=== PATIENT | male | born 1945 | race Caucasian/White ===

== ENCOUNTER 2019-08-20 15:06 | Emergency (ER) | payer BC, MEDICARE ==
[2019-08-20] MEDS ORDERED: Bacitracin Oint 1 GM U/D Packet TOP ONE (15:31)
--- NOTE | 2019-08-20 16:04 | EDM.PDOC ---
ED HPI GENERAL MEDICAL PROBLEM - General Chief Complaint: Laceration Stated Complaint: R LEG INJURY Time Seen by Provider: 08/20/19 15:30 Source of Information: Reports: Patient History Limitations: Reports: No Limitations - History of Present Illness INITIAL COMMENTS - FREE TEXT/NARRATIVE: 74-year-old male with a right leg laceration. Unfortunately this occurred just over 20 hours ago, he has a flap laceration to the anterior aspect of the right lower leg. It is just distal to the knee. He washed it real good, tried to tape it but today it looked like it was gaping and he thought he should have it checked out. Duration: Hour(s): (20 to 22 hours ago) Location: Reports: Lower Extremity, Right Associated Symptoms: Reports: No Other Symptoms - Related Data Allergies Allergy/AdvReac Type Severity Reaction Status Date / Time No Known Allergies Allergy Verified 01/09/14 17:16 Home Meds: Home Meds Valsartan [Diovan] 40 mg PO DAILY 01/09/14 [History] Finasteride 5 mg PO DAILY 08/20/19 [History] Losartan/Hydrochlorothiazide [Losartan-HCTZ 50-12.5 MG] 1 tab PO DAILY 08/20/19 [History] Pravastatin Sodium [Pravastatin (Pravachol)] 40 mg PO DAILY 08/20/19 [History] Past Medical History Cardiovascular History: Reports: High Cholesterol, Hypertension - Past Surgical History Musculoskeletal Surgical History: Reports: Arthroscopic Knee, Other (See Below) Social & Family History - Tobacco Use Smoking Status *Q: Heavy Tobacco Smoker Years of Tobacco use: 50 Packs/Tins Daily: 1 - Caffeine Use Caffeine Use: Reports: Coffee - Recreational Drug Use Recreational Drug Use: No ED ROS GENERAL - Review of Systems Review Of Systems: See Below Constitutional: Denies: Fever, Chills Respiratory: Denies: Shortness of Breath Cardiovascular: Denies: Chest Pain GI/Abdominal: Denies: Abdominal Pain, Nausea, Vomiting : Reports: No Symptoms Musculoskeletal: Reports: No Symptoms Neurological: Reports: No Symptoms ED EXAM, SKIN/RASH Exam: See Below Exam Limited By: No Limitations General Appearance: Alert, No Apparent Distress Eye Exam: Bilateral Eye: Normal Inspection Head: Atraumatic Respiratory/Chest: No Respiratory Distress, Lungs Clear Cardiovascular: Regular Rate, Rhythm Extremities: Other (Patient has a 8 cm V-shaped flap laceration on the anterior aspect of the right lower leg just distal to the knee. It is to the fascia of the underlying muscle but does not penetrate through. It is otherwise full- thickness. There does appear to be some early granulation tissue starting.) Course - Vital Signs Last Recorded V/S: Last Vital Signs Temp 96.2 F L 08/20/19 15:25 Pulse 67 08/20/19 15:25 Resp 16 08/20/19 15:25 BP 140/72 08/20/19 15:25 Pulse Ox 94 L 08/20/19 15:25 - Orders/Labs/Meds Meds: Medications Discontinued Medications Generic Name Dose Route Start Last Admin Trade Name Patricia PRN Reason Stop Dose Admin Bacitracin 1 dose 08/20/19 15:31 08/20/19 15:38 Bacitracin Oint 1 Gm TOP 08/20/19 15:32 1 dose ONETIME ONE Administration Lidocaine HCl 5 ml 08/20/19 15:31 08/20/19 15:38 Xylocaine-Mpf 1% INJECT 08/20/19 15:32 5 ml ONETIME ONE Administration - Re-Assessments/Exams Free Text/Narrative Re-Assessment/Exam: 08/20/19 16:01 The wound was scrubbed briskly with saline for a full 15 to 20 minutes until bleeding was reinitiated. Some debridement of the edges to remove some of the granulation tissue was also done, and then 5 loose 4-0 Ethilon sutures were used to close the flap leaving a slight gap for secondary intention. He will be placed on cephalexin 500 mg twice daily for 10 days, keep the wound clean and increase activity as tolerated. Sutures can be removed in 10 days. Recheck sooner if concerns of infection or not healing satisfactorily. Departure - Departure Time of Disposition: 16:09 Disposition: Home, Self-Care 01 Clinical Impression: Laceration of leg Qualifiers: Encounter type: initial encounter Laterality: right Qualified Code(s): S81.811A - Laceration without foreign body, right lower leg, initial encounter - Discharge Information Instructions: Sutured Wound Care, [id number] Referrals: PCP,None [Primary Care Provider] - Forms: ED Department Discharge Care Plan Goals: Keep wound covered and clean while healing, and take antibiotic twice daily as prescribed. Remove sutures in 10 days. Recheck sooner if concerns of infection or not healing satisfactorily. Sepsis Event Note - Evaluation Sepsis Screening Result: No Definite Risk - Focused Exam Vital Signs: Vital Signs Temp Pulse Resp BP Pulse Ox 08/20/19 15:25 96.2 F L 67 16 140/72 94 L 08/20/19 15:21 96.2 F L 67 16 140/72 94 L Date Exam was Performed: 08/20/19 Time Exam was Performed: 17:26
== END 2019-08-20 16:09 | disposition home or self-care (01) ==
LOC: JP.ED 15:06
DX: S81.811A Laceration without foreign body, right lower leg, initial encounter (principal); I10 Essential (primary) hypertension; E78.00 Pure hypercholesterolemia, unspecified; F17.210 Nicotine dependence, cigarettes, uncomplicated; Z79.899 Other long term (current) drug therapy; W07.XXXA Fall from chair, initial encounter
CPT/HCPCS: 12004; 99282; J2001